=== PATIENT | male | born 1995 | race Caucasian/White ===

== ENCOUNTER 2025-01-26 00:05 | Emergency (ER) | payer OTHER ==
[~2025-01-26] VITALS: Ht 167.6 cm; Wt 59.0 kg
[2025-01-26 00:16] VITALS: BP 141/77; TEMP 97.8; O2SAT 99
== END 2025-01-26 00:24 ==
LOC: ER 00:06
DX: F10.129 Alcohol abuse with intoxication, unspecified (principal); Y90.9 Presence of alcohol in blood, level not specified

== ENCOUNTER 2025-01-26 02:29 | Emergency (ER) | payer OTHER ==
[~2025-01-26] VITALS: Ht 167.6 cm; Wt 62.1 kg
[2025-01-26] MEDS: dexaMETHasone SOD PHOSPHATE 4 MG/ML VIAL IM ONE (02:41)
[2025-01-26] MEDS: ALBUTEROL FS 2.5 MG/0.5 ML VIAL.NEB NEB ONE (02:42)
[2025-01-26] MEDS: hydrOXYzine 10 MG TABLET PO ONE (02:43)
[2025-01-26 02:49] VITALS: O2SAT 98
[2025-01-26] MEDS ORDERED: ALBUTEROL FS 2.5 MG/0.5 ML VIAL.NEB ONE (02:49)
[2025-01-26 02:59] VITALS: O2SAT 100
[2025-01-26] MEDS: ALBUTEROL SULFATE 8 GM HFA.AER.AD IH ONE (03:30)
[2025-01-26 03:37] VITALS: BP 131/89; TEMP 98.1; O2SAT 100
== END 2025-01-26 03:37 | disposition home or self-care (01) ==
LOC: ER 02:30
DX: J45.901 Unspecified asthma with (acute) exacerbation (principal); R07.89 Other chest pain
CPT/HCPCS: 71045-TC